=== PATIENT | female | born 1950 | race Caucasian/White ===

== ENCOUNTER 2018-09-23 10:46 | Emergency (ER) | payer MEDICARE ==
[~2018-09-23] VITALS: Ht 172.7 cm; Wt 97.5 kg
[~2018-09-23 10:46] MED LIST: ALTACE10 MG PO; AUGMENTIN 875-1 EACH PO; CELEBREX200 MG PO; CHERATUSSIN AC118 ML PO; DYAZIDE 37.5-21 EACH PO; GABAPENTIN600 MG PO; HEMOCYTE PLUS1 EACH PO; KLOR-CON 88 MEQ PO; LASIX40 MG PO; LEVOTHYROXINE125 MCG PO; LORATADINE10 MG PO; NORCO 10-325 T1 EACH PO; POTASSIUM CHLO20 ME1 PO; PREMARIN0.625 MG PO
--- OUTSIDE RECORDS SUMMARY | 2018-09-23 10:48 | XMS REPORT ---
Author Author [facility] Address Unknown Phone Unavailable Care Team Providers Care Telemarketer Name Role Phone Unavailable Unavailable Payers Payer Name Policy Type Policy Number Effective Date Expiration Date Problems This patient has no known problems. Allergies, Adverse Reactions, Alerts Allergy Name Allergy Type Status Severity Reaction(s) Onset Date Inactive Date Treating Clinician Comments No Known Contrast Allergies DA Active U 2009-03-12 00:00:00 No Known Food Allergies DA Active U 2009-03-12 00:00:00 No Known Other Allergies DA Active U 2009-03-12 00:00:00 PENICILLIN DA Active U 2009-03-12 00:00:00 No Known Drug Intolerances DA Active U 2009-02-27 00:00:00 Penicillins DA Active U 2004-11-18 00:00:00 Medications This patient has no known medications.
== END 2018-09-23 11:34 | disposition home or self-care (01) ==
LOC: FSED 10:46
DX: N30.00 Acute cystitis without hematuria (principal); I10 Essential (primary) hypertension; E03.9 Hypothyroidism, unspecified
CPT/HCPCS: 81003; 99283

== ENCOUNTER 2019-03-14 17:58 | Observation (INO) | payer MEDICARE ==
[~2019-03-14] VITALS: Ht 170.2 cm; Wt 85.7 kg
[2019-03-14] MEDS ORDERED: SODIUM CHLORIDE 0.9% 1000ML 1,000 ML IV SCH (18:30)
[2019-03-14] MEDS ORDERED: KETOROLAC TROMETHAMINE 30 MG/ML VIAL IV ONE ×2 (20:03)
[2019-03-14] MEDS ORDERED: KETOROLAC TROMETHAMINE 30 MG/ML VIAL ONE (20:36)
[2019-03-14] MEDS ORDERED: MORPHINE SULFATE INJ 4 MG/ML INJ 1ML ONE (21:00)
[2019-03-14] MEDS ORDERED: SODIUM CHLORIDE 0.9% 1000ML 1,000 ML ONE (21:00)
[2019-03-14] MEDS ORDERED: MORPHINE SULFATE 5 MG/ML VIAL IV ONE (21:00)
[2019-03-14] MEDS ORDERED: MORPHINE SULFATE INJ 4 MG/ML INJ 1ML IV ONE (21:00)
--- NOTE | 2019-03-14 21:13 | Diagnostic Imaging Report ---
EXAMINATION: Chest PA and lateral views INDICATION: Pain. ^[id number] ^[id number] COMPARISON: None FINDINGS: TUBES and LINES: None. LUNGS: Lungs are not well inflated. There are bibasilar atelectasis. There is no evidence of pneumonia or pulmonary edema. PLEURA: No pleural effusion or pneumothorax. HEART AND MEDIASTINUM: Cardiac size is mildly enlarged. BONES AND SOFT TISSUES: No acute osseous lesion. Spondylosis of the thoracic spine. UPPER ABDOMEN: No free air under the diaphragm. IMPRESSION: No acute thoracic abnormality. Signed by: Dr. Sigrid Bradley M.D. on 03/14/2019 9:10 PM
--- NOTE | 2019-03-14 21:15 | Diagnostic Imaging Report ---
Thoracic Spine 3 - views HISTORY: Pain COMPARISON: None FINDINGS: This examination only became available for interpretation at 2110 hours. Overlying artifact on the lateral view. Posterior elements cannot be evaluated. No displaced fracture. Osseous alignment is within normal limits. Multilevel degenerative disc disease and spondylosis of the cervical and thoracic spine. IMPRESSION: Multilevel degenerative disc disease and spondylosis of the cervical and thoracic spine. Signed by: Dr. Sigrid Bradley M.D. on 03/14/2019 9:11 PM
--- NOTE | 2019-03-14 21:17 | Diagnostic Imaging Report ---
Lumbar Spine Radiographs: 3 views HISTORY: Pain. COMPARISON: None available. DISCUSSION: Examination became available at 2110 hours. Overlying artifact. There are five non-rib bearing lumbar vertebral bodies. Multilevel degenerative disc disease and spondylosis of the entire lumbar spine. No compression fracture deformity. Grade 2 anterolisthesis of L4 in relation to L5. IMPRESSION: 1.Grade 2 anterolisthesis of L4 in relation to L5. 2.Multilevel degenerative disc disease and spondylosis of the entire lumbar spine. Signed by: Dr. Sigrid Bradley M.D. on 03/14/2019 9:13 PM
--- NOTE | 2019-03-14 21:40 | Diagnostic Imaging Report ---
History: Head and back pain Comparison studies:None Technique: Axial images were obtained from the brain and cervical spine. Coronal and sagittal images reconstructed from the axial data. Intravenous contrast: None Dose modulation, iterative reconstruction, and/or weight based adjustment of the mA/kV was utilized to reduce the radiation dose to as low as reasonably achievable. Findings: Head CT: Scalp/skull: No abnormalities. No fractures, blastic or lytic lesions. Brain sulci: Mildly prominent. Ventricles: Normal in size and configuration. No hydrocephalus. Extra-axial spaces: No masses. No fluid collections. Parenchyma: No abnormal densities. No masses, hemorrhage, acute or chronic cortical vascular insults. Sellar/suprasellar region: No abnormalities. Craniocervical junction: Patent foramen magnum. No Chiari one malformation. Mild atherosclerotic calcifications of the carotid siphons Cervical spine CT: Fractures: None. Soft tissues: No gross abnormalities. Atlantoaxial articulation: Degenerative changes without acute abnormality. Alignment: Normal lordosis. No scoliosis. Cervicomedullary junction: No abnormalities. Patent foramen magnum. Vertebrae: No infection or neoplasm. Degenerative changes: Decreased intervertebral space, endplate sclerosis and irregularities from C2 through C7. Uncinate process hypertrophy and facet hypertrophy results in multilevel [id number] foraminal narrowing more significant at C6-7 on the left. Incidental findings: None. Impression: Head CT: 1. No acute intracranial abnormality. Cervical spine CT: 1. No acute abnormalities. 2. Cannot exclude ligament, spinal cord and or vascular abnormalities on the basis of this examination. Signed by: DR Ty Aguilar M.D. on 03/14/2019 9:37 PM
[2019-03-14] MEDS ORDERED: SODIUM CHLORIDE 0.9% 500ML 500 ML IV ONE (22:00)
[2019-03-14] MEDS ORDERED: ONDANSETRON HCL INJ 2MG/ML 2ML 2 MG/ML VIAL IV PRN (22:30)
[2019-03-14] MEDS ORDERED: MORPHINE SULFATE 2 MG/ML SYR 1ML IV PRN (22:30)
[2019-03-14] MEDS ORDERED: SODIUM CHLORIDE 0.9% 500ML 500 ML ONE (22:38)
--- NOTE | 2019-03-14 22:47 | NUR ---
FAMILY FRIEND MACKENZIE ([phone]) REQUESTED TO BE CALLED IF NEEDED FOR PT; PT STATES IT IS OKAY;
--- NOTE | 2019-03-14 23:11 | NUR ---
[facility] CALLED FOR TRANSPORT
[2019-03-15] VITALS (7 sets, daily range): BP systolic 110–128; BP diastolic 52–61
--- NOTE | 2019-03-15 00:30 | NUR ---
PATIENT ARRIVED VIA STRETCHER TO THE UNIT. PATIENT IS A&OX3. CALL LIGHT WITHIN REACH. BELONGINGS WITH PATIENT.
[2019-03-15] MEDS: SODIUM CHLORIDE 0.9% 1000ML 1,000 ML IV SCH ×2 (01:01→10:32)
[2019-03-15] MEDS ORDERED: KLOR-CON 88 MEQ (01:54)
[2019-03-15] MEDS ORDERED: WOMEN'S DAILY1 EAC2 (01:59)
[2019-03-15] MEDS ORDERED: OMEPRAZOLE40 MG (01:59)
[2019-03-15] MEDS ORDERED: VENTOLIN HFA18 GM (01:59)
[2019-03-15] MEDS ORDERED: SINGULAIR10 MG (01:59)
--- NOTE | 2019-03-15 02:00 | NUR ---
CALLED [facility]ARM[facility] ABOUT CHANGING THE MORPHINE SULFATE BECAUSE IT IS GREYED OUT IN [place] AND NOT AVAILABLE. THEY SAID THEY WILL FIX IT.
--- NOTE | 2019-03-15 03:05 | NUR ---
CALLED [facility] S[facility] PHARM[facility]Y BECAUSE MORPHINE SULFATE WAS NOT FIXED AND ASKED THEM TO FIX IT AGAIN. THEY SAID THEY WILL FIX IT SO WAITING FOR THEM TO FIX IT SO I CAN GIVE PAIN MEDICATION TO THE PATIENT
[2019-03-15] MEDS: MORPHINE SULFATE INJ 4 MG/ML INJ 1ML IV PRN ×2 (03:36→10:25)
--- NOTE | 2019-03-15 06:57 | NUR ---
Gave report to oncoming nurse. Patient in bed. Call light within reach.
[2019-03-15 07:21] LABS: BASOPHILS # (AUTO) 0.1 (0.0-0.1); BASOPHILS % 0.9 % (0.0-1.0); EOSINOPHILS # (AUTO) 0.3 (0.0-0.4); EOSINOPHILS % 4.4 % (0.0-6.0); HEMATOCRIT 26.5 % (34.2-44.1); HEMOGLOBIN 8.4 g/dL (12.0-16.0); LYMPHOCYTES # (AUTO) 2.5 (1.0-3.2); LYMPHOCYTES % 31.5 % (18.0-39.1); MEAN CORPUSCULAR HEMOGLOBIN 29.2 pg (28-32); MEAN CORPUSCULAR HGB CONC 31.7 g/dL (31-35); MONOCYTES # (AUTO) 0.7 (0.2-0.8); MONOCYTES % 8.6 % (4.4-11.3); NEUTROPHILS # (AUTO) 4.2 (2.1-6.9); NEUTROPHILS % 54.2 % (38.7-80.0); PLATELET COUNT 314 x10e3/uL (140-360); RED BLOOD COUNT 2.88 x10e6/uL (3.6-5.1); RED CELL DISTRIBUTION WIDTH 13.4 % (11.7-14.4)
[2019-03-15 07:45] LABS: ALBUMIN/GLOBULIN RATIO 0.6 (0.8-2.0); ANION GAP 10.5 mmol/L (8-16); CALCIUM 8.7 mg/dL (8.4-10.2); CREATININE, SERUM 1.69 mg/dL (0.57-1.11); POTASSIUM 3.5 mmol/L (3.5-5.1)
--- NOTE | 2019-03-15 09:10 | NUR ---
patient off the unit for MRI, Stable
[2019-03-15] MEDS ORDERED: LORAZEPAM INJ 2 MG/ML VIAL IV ONE (10:00)
--- NOTE | 2019-03-15 11:48 | NUR ---
patient refused MRI she stating that, she is claustrophobic and she dont want take Ativan IV before MRI, she claiming that she want open MRI in outpatient, paged Dr Dominique
--- NOTE | 2019-03-15 14:35 | NUR ---
paged x2 Dr Dominique that patient refused MRI
--- NOTE | 2019-03-15 17:06 | NUR ---
Patient discharged home, Dr Dominique here for rounds. Prescription faxed to [facility] pharmacy ([phone]), IV canula removed with tip intact, patient aware about f/up appointment
--- NOTE | 2019-03-15 22:59 | Discharge Summary ---
FINAL DIAGNOSES: 1. Acute lower back pain, status post lower back strain. 2. Degenerative disk disease of the lumbar spine. SUMMARY: The patient is a 68-year-old female with chronic kidney disease and chronic anemia at baseline with multiple allergies, came in with acute low back pain. The patient is ambulatory with a cane. Apparently, she was pushing and pulling on the mattress at home, moving and experiencing pain, came to the hospital for further evaluation. X-ray showed degenerative disk disease. She could not tolerate MRI due to claustrophobia. The patient will need open MRI of the lumbosacral spine. The patient is otherwise stable. We will discharge the patient home. Continue with pain medication and follow up as an outpatient for an open MRI outpatient randall. The patient is stable, discharged home today. Resume home medication. MD TIFFANIE Matt/TRESA /[id number]
== END 2019-03-15 16:34 | disposition home or self-care (01) ==
LOC: FSED 17:58 → ERHOLD 22:18 → IMCU 03-15 00:33
PROVIDERS: ADMIT Internal Medicine; ATTEND Internal Medicine
DX: S39.012A Strain of muscle, fascia and tendon of lower back, initial encounter (principal); X50.9XXA Other and unspecified overexertion or strenuous movements or postures, initial encounter; Y93.89 Activity, other specified; Y92.013 Bedroom of single-family (private) house as the place of occurrence of the external cause; N17.9 Acute kidney failure, unspecified; M54.2 Cervicalgia; M51.36 Other intervertebral disc degeneration, lumbar region; N18.9 Chronic kidney disease, unspecified; D64.9 Anemia, unspecified; F40.240 Claustrophobia
CPT/HCPCS: 36415; 70450; 71046; 72070; 72100; 72125; 80048; 80053; 81003; 82553; 84484; 85025 ×2; 93005; 99284; G0378 ×2; J1885; J2270 ×3; J7030 ×2; J7040

== ENCOUNTER 2019-05-30 13:46 | Inpatient (IN) | payer MEDICARE ==
[~2019-05-30] VITALS: Ht 167.6 cm; Wt 92.1 kg
[~2019-05-30 13:46] MED LIST changes: +OMEPRAZOLE40 MG PO; +SINGULAIR10 MG PO; +VENTOLIN HFA18 GM; +WOMEN'S DAILY1 EAC2 PO
--- NOTE | 2019-05-30 14:17 | NUR ---
bp's and pulses all checked and re-checked with md at bedside.
--- NOTE | 2019-05-30 14:17 | NUR ---
in room evaling pt
[2019-05-30] MEDS ORDERED: ONDANSETRON HCL INJ 2MG/ML 2ML 2 MG/ML VIAL IV NR (14:30)
[2019-05-30] MEDS ORDERED: MORPHINE SULFATE 2 MG/ML SYR 1ML IV NR (14:30)
[2019-05-30] MEDS ORDERED: ONDANSETRON HCL INJ 2MG/ML 2ML 2 MG/ML VIAL ONE (14:40)
[2019-05-30 14:49] LABS: BASOPHILS # (AUTO) 0.1 (0.0-0.1); BASOPHILS % 0.5 % (0.0-1.0); EOSINOPHILS # (AUTO) 0.1 (0.0-0.4); EOSINOPHILS % 0.9 % (0.0-6.0); HEMATOCRIT 30.3 % (34.2-44.1); HEMOGLOBIN 9.6 g/dL (12.0-16.0); LYMPHOCYTES # (AUTO) 1.6 (1.0-3.2); LYMPHOCYTES % 12.4 % (18.0-39.1); MEAN CORPUSCULAR HEMOGLOBIN 29.5 pg (28-32); MEAN CORPUSCULAR HGB CONC 31.7 g/dL (31-35); MEAN CORPUSCULAR VOLUME 93.2 fL (81-99); MONOCYTES # (AUTO) 0.8 (0.2-0.8); MONOCYTES % 6.5 % (4.4-11.3); NEUTROPHILS # (AUTO) 10.1 (2.1-6.9); NEUTROPHILS % 79.3 % (38.7-80.0); PLATELET COUNT 439 x10e3/uL (140-360); RED BLOOD COUNT 3.25 x10e6/uL (3.6-5.1); RED CELL DISTRIBUTION WIDTH 14.3 % (11.7-14.4)
--- NOTE | 2019-05-30 14:56 | NUR ---
portable x-ray done. pt going to mri next
--- NOTE | 2019-05-30 14:57 | NUR ---
in/out cath per partition assembler
--- NOTE | 2019-05-30 14:59 | NUR ---
pt declined mri
[2019-05-30 15:03] LABS: BILIRUBIN,URINE NEGATIVE (NEGATIVE); CLARITY,URINE SL CLOUDY (CLEAR); COLOR,URINE YELLOW (YELLOW); KETONES,URINE NEGATIVE (NEGATIVE); LEUKOCYTE ESTERASE ,URINE NEGATIVE (NEGATIVE); NITRITE,URINE NEGATIVE (NEGATIVE); PROTEIN,URINE DIPSTICK TRACE (NEGATIVE); URINE UROBILINOGEN 0.2 mg/dL (0.2 - 1)
[2019-05-30 15:13] LABS: INR 1.05; PROTHROMBIN TIME 14.2 seconds (11.9-14.5)
[2019-05-30 15:14] LABS: PARTIAL THROMBOPLASTIN TIME 38.3 seconds (23.8-35.5)
[2019-05-30 15:17] LABS: BACTERIA,URINE MODERATE /HPF; EPITHELIAL CELLS,URINE MODERATE /LPF; WBC,URINE (MAN) 0-5 /HPF (0-5)
[2019-05-30 15:21] LABS: ALBUMIN 2.5 g/dL (3.5-5.0); ALBUMIN/GLOBULIN RATIO 0.6 (0.8-2.0); ANION GAP 18.8 mmol/L (8-16); CREATININE, SERUM 2.84 mg/dL (0.57-1.11); POTASSIUM 3.8 mmol/L (3.5-5.1)
[2019-05-30 15:27] LABS: CREATINE KINASE MB 2.1 ng/mL (0-5.0)
[2019-05-30] MEDS ORDERED: SODIUM CHLORIDE 0.9% 1000ML 1,000 ML IV ONE ×2 (16:00→17:15)
[2019-05-30] MEDS ORDERED: MORPHINE SULFATE 2 MG/ML SYR 1ML IV PRN (16:00)
--- NOTE | 2019-05-30 16:06 | Diagnostic Imaging Report ---
Examination: Single AP view of the chest. COMPARISON: None. INDICATION: Back pain DISCUSSION: Lines/tubes: None. Lungs: The lungs are well inflated and clear. Scattered calcified granuloma. No pneumonia or pulmonary edema. Pleura: No pleural effusion or pneumothorax. Heart and mediastinum: The heart and the mediastinum are unremarkable. Bones and soft tissues: No acute bony abnormalities. IMPRESSION: 1. No acute cardiopulmonary abnormalities. Signed by: Dr. Alejandro Cobb M.D. on 05/30/2019 4:03 PM
--- NOTE | 2019-05-30 16:06 | Diagnostic Imaging Report ---
Exam: Left hip 2 views History: Pain Comparison: None. Findings: Limited evaluation due to soft tissue attenuation. No displaced fracture. Left hip joint space maintained. Impression: No displaced fracture Signed by: Dr. Alejandro Cobb M.D. on 05/30/2019 4:02 PM
[2019-05-30 16:35] VITALS: BP 110/51
--- NOTE | 2019-05-30 16:50 | Diagnostic Imaging Report ---
History: Chronic back pain Comparison studies: None Technique: Axial images were obtained from T11 inferior endplate through the sacrum. Coronal and sagittal images reconstructed from the axial data. Intravenous contrast: None Dose modulation, iterative reconstruction, and/or weight based adjustment of the mA/kV was utilized to reduce the radiation dose to as low as reasonably achievable. Findings: Number of non-rib bearing vertebral bodies: 5 Alignment: Grade 1 anterolisthesis of L4 over L5 of approximately 6 mm, related to facet hypertrophic changes. Mild levoscoliosis at the thoracolumbar junction with corrective dextroscoliosis at the lower lumbar spine. Soft tissues: No abnormalities. Paraspinal muscles: Fatty infiltration related to moderate atrophy Vertebrae: No fractures, infection or neoplasm. Degenerative changes: L1-L2: Disc degeneration with decreased intervertebral space, endplate sclerotic changes and irregularity. Asymmetric right disc bulge and mild facet hypertrophy results in no significant canal stenosis and moderate to severe right foraminal narrowing L2-L3: Disc degeneration with obliterated intervertebral space, endplate sclerosis and irregularities. Diffuse disc bulge and mild facet hypertrophy results in mild canal stenosis, mild right and moderate left foraminal narrowing L3-L4: Disc degeneration with decreased intervertebral space. Patent asymmetric right disc bulge, mild facet hypertrophy and ligamentum flavum thickening results in mild canal stenosis, mild right and moderate left foraminal narrowing L4-L5: Disc degeneration with decreased intervertebral space, endplate sclerotic changes and irregularities. Uncoverage of the superior disc material. Diffuse disc bulge, severe facet hypertrophy and ligamentum flavum thickening results in severe canal stenosis, moderate right and severe left foraminal narrowing. 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 IMPRESSION: 1. No acute lumbar abnormality. 2. Severe degenerative canal stenosis and moderate bilateral foraminal narrowing at L4-L5. Other degenerative changes as described above. 3. Cannot exclude ligamentous or spinal cord injury. Signed by: DR Ty Aguilar M.D. on 05/30/2019 4:55 PM
--- NOTE | 2019-05-30 18:19 | NUR ---
PATIENT ARRIVED TO ROOM 297 FROM ER AT THIS TIME. SHE IS IN STABLE CONDITION, NO ACUTE DISTRESS NOTED. PATIENT AND FAMILY MEMBER ORIENTED TO ROOM. CALL LIGHT WITHIN REACH. BED IN THE LOWEST POSITION.
--- NOTE | 2019-05-30 18:56 | NUR ---
REPORT GIVEN TO ONCOMING NURSE, WALKING ROUNDS DONE. PATIENT IS RESTING IN BED. NO ACUTE DISTRESS NOTED. CALL LIGHT WITHIN REACH. BED IN THE LOWEST POSITION.
[2019-05-30] MEDS: MORPHINE SULFATE INJ 4 MG/ML INJ 1ML IV PRN ×2 (19:35→23:34)
[2019-05-30] MEDS: ONDANSETRON HCL INJ 2MG/ML 2ML 2 MG/ML VIAL IV PRN ×2 (19:35→23:34)
--- NOTE | 2019-05-30 19:55 | NUR ---
PATIENT IS AOX3, NO SIGNS OF RESPIRATORY DISTRESS NOTED. PATIENT VOICES THAT SHE IS IN A LOT OF PAIN IN LOWER BACK AND IT HURTS MORE WHEN SHE MOVES. A PUREWICK WAS PLACED ON PATIENT FOR URINATION, FLUIDS ARE RUNNING AT ORDERED RATE. BED IS LOW, PATIENT IS LAYING FLAT, BOTH SIDE RAILS ARE UP, CALL LIGHT WITHIN REACH, WILL CONTINUE TO MONITOR.
[2019-05-30 20:00] VITALS: BP 105/52
[2019-05-30 22:30] VITALS: BP 105/52
[2019-05-30 23:07] VITALS: BP 105/52
[2019-05-31] VITALS (9 sets, daily range): BP systolic 100–140; BP diastolic 52–70
--- NOTE | 2019-05-31 03:00 | NUR ---
PATIENT CONTINUES TO EXPRESS MAJOR PAIN WHEN MOVING. PATIENT URINATED ON SHEETS AND SHE WAS CLEANED AND CHANGED PROMPTLY. PATIENT EXPERIENCED EXTREME PAIN WHEN MOVING TO CHANGE SHEETS IN BED. MEDICATED ORDERED.
[2019-05-31] MEDS: ONDANSETRON HCL INJ 2MG/ML 2ML 2 MG/ML VIAL IV PRN ×3 (03:35→14:27)
[2019-05-31] MEDS: MORPHINE SULFATE INJ 4 MG/ML INJ 1ML IV PRN ×3 (03:35→14:27)
[2019-05-31 05:48] LABS: BASOPHILS # (AUTO) 0.1 (0.0-0.1); BASOPHILS % 0.7 % (0.0-1.0); EOSINOPHILS # (AUTO) 0.1 (0.0-0.4); EOSINOPHILS % 0.9 % (0.0-6.0); HEMATOCRIT 29.9 % (34.2-44.1); HEMOGLOBIN 9.3 g/dL (12.0-16.0); LYMPHOCYTES # (AUTO) 1.3 (1.0-3.2); MEAN CORPUSCULAR HEMOGLOBIN 29.3 pg (28-32); MEAN CORPUSCULAR HGB CONC 31.1 g/dL (31-35); MEAN CORPUSCULAR VOLUME 94.3 fL (81-99); MONOCYTES # (AUTO) 0.7 (0.2-0.8); MONOCYTES % 6.9 % (4.4-11.3); NEUTROPHILS # (AUTO) 7.5 (2.1-6.9); NEUTROPHILS % 78.2 % (38.7-80.0); PLATELET COUNT 380 x10e3/uL (140-360); RED BLOOD COUNT 3.17 x10e6/uL (3.6-5.1)
[2019-05-31 06:07] LABS: ALBUMIN 2.3 g/dL (3.5-5.0); ALBUMIN/GLOBULIN RATIO 0.5 (0.8-2.0); CALCIUM 9.9 mg/dL (8.4-10.2); CREATININE, SERUM 2.24 mg/dL (0.57-1.11)
[2019-05-31] MEDS: LEVOTHYROXINE SODIUM 125 MCG TAB PO SCH (06:58)
--- NOTE | 2019-05-31 07:37 | NUR ---
Morning rounding completed. Patient seen resting in bed, no c/o of pain or signs of distress. Bed locked and in low position, call light placed within reach. Will continue to monitor.
[2019-05-31] MEDS: GABAPENTIN 300 MG CAP PO SCH ×3 (08:21→21:00)
[2019-05-31] MEDS: CELECOXIB 200 MG CAP PO SCH (08:21)
[2019-05-31] MEDS: HYDROCODONE/APAP 10MG-325MG TAB PO SCH ×4 (08:21→21:30)
[2019-05-31] MEDS: LORATADINE 10 MG TAB PO SCH (08:21)
[2019-05-31] MEDS: MULTIVITAMINS/MINERALS TAB PO SCH (08:21)
[2019-05-31] MEDS: PANTOPRAZOLE SOD 40 MG TABEC PO SCH (08:22)
[2019-05-31] MEDS: MONTELUKAST SODIUM 10 MG TAB PO SCH (08:22)
[2019-05-31] MEDS ORDERED: RAMIPRIL 5 MG CAP PO SCH (09:00)
[2019-05-31] MEDS ORDERED: ESTROGENS CONJUGATED 0.625 MG TAB PO SCH (09:00)
[2019-05-31] MEDS ORDERED: POTASSIUM CHLORIDE 20 MEQ TAB CR PO SCH (09:00)
[2019-05-31] MEDS ORDERED: ALBUTEROL/IPRATROPIUM 3 ML NEB NEB PRN (09:30)
[2019-05-31] MEDS: DEXAMETHASONE SOD PHOS INJ 4 MG/ML VIAL IV SCH ×2 (09:52→17:00)
[2019-05-31] MEDS ORDERED: LORAZEPAM INJ 2 MG/ML VIAL IV ONE (10:00)
--- NOTE | 2019-05-31 10:00 | NUR ---
APPLIED BED PUMP TO MATTRESS.
--- NOTE | 2019-05-31 10:23 | NUR ---
PATIENT REFUSING MRI DUE TO BEING CLAUSTROPHOBIC, NOTIFIED PATIENT THAT DR. MART ORDERED ATIVAN TO BE GIVEN BEFORE STUDY. PER PATIENT "THEY HAVE TRIED THAT BEFORE, I DON'T WANT TO DO IT" NOTIFIED MD.
[2019-05-31] MEDS: ALBUTEROL SULFATE HFA 8GM INHALATION AEROSOL INH SCH ×3 (11:25→20:05)
[2019-05-31] MEDS: SODIUM CHLORIDE 0.9% 1000ML 1,000 ML IV SCH ×2 (12:08→23:00)
--- NOTE | 2019-05-31 13:25 | History and Physical ---
CHIEF COMPLAINT: Difficulty walking and getting out of bed. HISTORY: The patient is a 68-year-old female with a long history of degenerative lumbar spine disease. The patient is on chronic pain management. The patient came in with increase in lower back pain to the point subsequently that she was having difficulty getting out of bed and ambulate. The patient's pain was severe in light of on scheduled [place]. She also has radiating that pain to the left lower extremity to the hip and into the back area. The patient called EMS and was brought into the hospital. She is severely claustrophobic, therefore no MRI was able to get done. The patient is admitted. CT scan of the L-spine did not show any acute finding, although the patient has significant degenerative disk disease. The patient is otherwise stable. No history or complain of incontinent or constipation. No urinary bladder dysfunction. The patient is able to move her lower extremity, although with limitation and pain to the lower back in the left hip area. X-ray, otherwise no fractures. The patient is stable at this time. PAST MEDICAL HISTORY: Degenerative disk disease of lumbar spine, multiple osteoarthritis knee, hip, hypertension, recurrent urinary tract infection, history of migraine headache, severe chronic sinus allergies problem. Reflux, anemia, obesity, hypothyroidism, lower extremity neuropathy, chronic cough and sinus allergies. PAST SURGICAL HISTORY: Cholecystectomy, appendectomy, hysterectomy, and knee replacement, D and C, tonsillectomy, left wrist avascular necrosis surgery, sinus surgery, bilateral knee arthroscopic surgery, revised total knee replacement. SOCIAL HISTORY: The patient does not smoke or use alcohol. No regular drugs. ALLERGIES: NO KNOWN DRUG ALLERGIES. HOME MEDICATIONS: List is extensively reviewed. REVIEW OF SYSTEMS: Difficulty walking. Pain to the lower back. No loss of bowel or urine control. PHYSICAL EXAMINATION: VITAL SIGNS: Temperature is 98, blood pressure 114/53, pulse rate is 88, respiration 18. GENERAL: The patient is not in acute distress, she is awake. HEENT: Normocephalic, atraumatic. Pupils reactive. Anicteric. NECK: Supple, grossly. PULMONARY: Diminished breath sounds without any wheezing. CARDIOVASCULAR: S1, S2. Regular rate and rhythm. ABDOMEN: Soft, obese, nontender, non-distention. EXTREMITIES: No gross cyanosis or edema. NEUROLOGIC: Difficulty moving of the lower extremity. There is no other focal deficit. LABORATORY DATA: Sodium is 139, potassium 4, chloride 102, bicarb 20, BUN 34, creatinine 2.2, and glucose 96. WBC is 9.6, hemoglobin 9.3, hematocrit 29.9, platelets is 380. PT is 14.2, PTT 38.3. INR is 1.05. AST 14, ALT is 9, alkaline phosphate is 119, total bilirubin is 0.6. Lumbar spine CT without contrast showed no acute lumbar abnormality. Severe degenerative canal stenosis and moderate bilateral foraminal narrowing at L4-L5. Other degenerative changes described in the above. Please review the full report. Hip x-ray is otherwise no fractures. Next, chest x-ray unremarkable. IMPRESSION: 1. Ambulatory dysfunction secondary to lower back pain with severe most likely degenerative disk disease. Unable to obtain MRI since the patient is very adamantly that she is unable to do the close MRI, wanted an open MRI. Discussed with the patient there is no open MRI available, but we will try to give the patient IV Ativan prior to her MRI. The patient is semi-agreeable at this time, but I encouraged the patient to try. 2. Starvation. Decadron 4 mg IV q.8h. Resume home medication. We will consult Dr. Marcos Pizarro for his recommendation. In the meantime, Lovenox for DVT prophylaxis, pain medication, stool management and PT/OT. Please review the orders. MD TIFFANIE Matt/TRESA /[id number]
--- NOTE | 2019-05-31 13:33 | NUR ---
DR. SHER IN TO SEE PATIENT, NOTIFIED MD OF PATIENT REFUSING MRI. PER MD CANCEL MRI ORDER, PATIENT WILL HAVE OPEN MRI OUTPATIENT AND REFER TO HIM FOR OUTPATIENT TREATMENT.
[2019-05-31] MEDS: ENOXAPARIN 30 MG/0.3 ML SYR SC SCH (16:37)
[2019-05-31] MEDS: SENNA-S TABLET PO SCH (16:37)
--- NOTE | 2019-05-31 19:00 | NUR ---
patient recieved awake, alert, sitting up on side of bed. no c/o pain noted. purewick remains intact. ivf continue to infuse without difficulty. pm assessment complete. family noted at the bedside. patient instructed to call for assistance when needed.
--- NOTE | 2019-05-31 19:10 | NUR ---
Bedside report given to night nurse. Patient sitting up on side of bed, no c/o of pain or signs of distress. Reports feeling a lot better. Bed locked and in low position, call light placed within reach.
[2019-06-01] VITALS (7 sets, daily range): BP systolic 104–150; BP diastolic 51–66
--- NOTE | 2019-06-01 | NUR ---
patient appears to be resting quietly. no c/o pain noted at this time.
[2019-06-01] MEDS: DEXAMETHASONE SOD PHOS INJ 4 MG/ML VIAL IV SCH ×2 (01:20→17:33)
[2019-06-01] MEDS: LEVOTHYROXINE SODIUM 125 MCG TAB PO SCH (05:41)
[2019-06-01 06:15] LABS: HEMOGLOBIN 8.9 g/dL (12.0-16.0); LYMPHOCYTES # (AUTO) 0.7 (1.0-3.2); LYMPHOCYTES % 6.4 % (18.0-39.1); MEAN CORPUSCULAR HEMOGLOBIN 29.1 pg (28-32); MEAN CORPUSCULAR HGB CONC 30.7 g/dL (31-35); MEAN CORPUSCULAR VOLUME 94.8 fL (81-99); MONOCYTES # (AUTO) 0.1 (0.2-0.8); MONOCYTES % 1.2 % (4.4-11.3); NEUTROPHILS # (AUTO) 10.1 (2.1-6.9); NEUTROPHILS % 91.9 % (38.7-80.0); PLATELET COUNT 402 x10e3/uL (140-360); RED BLOOD COUNT 3.06 x10e6/uL (3.6-5.1); RED CELL DISTRIBUTION WIDTH 13.9 % (11.7-14.4)
[2019-06-01 06:56] LABS: ANION GAP 13.7 mmol/L (8-16); CREATININE, SERUM 2.04 mg/dL (0.57-1.11); POTASSIUM 4.7 mmol/L (3.5-5.1)
[2019-06-01] MEDS: MULTIVITAMINS/MINERALS TAB PO SCH (10:23)
[2019-06-01] MEDS: ALBUTEROL SULFATE HFA 8GM INHALATION AEROSOL INH SCH ×3 (10:23→21:27)
[2019-06-01] MEDS: CELECOXIB 200 MG CAP PO SCH (10:23)
[2019-06-01] MEDS: LORATADINE 10 MG TAB PO SCH (10:23)
[2019-06-01] MEDS: HYDROCODONE/APAP 10MG-325MG TAB PO SCH ×3 (10:24→21:27)
[2019-06-01] MEDS: GABAPENTIN 300 MG CAP PO SCH ×3 (10:24→21:27)
[2019-06-01] MEDS: PANTOPRAZOLE SOD 40 MG TABEC PO SCH (10:24)
[2019-06-01] MEDS: MONTELUKAST SODIUM 10 MG TAB PO SCH (10:24)
[2019-06-01] MEDS: SENNA-S TABLET PO SCH ×2 (10:24→17:33)
[2019-06-01] MEDS: ONDANSETRON HCL INJ 2MG/ML 2ML 2 MG/ML VIAL IV PRN (12:17)
[2019-06-01] MEDS: MORPHINE SULFATE INJ 4 MG/ML INJ 1ML IV PRN (12:17)
--- NOTE | 2019-06-01 13:17 | NUR ---
EDUCATED ABOUT IMM, SIGNED, FILED IN CHART, WITH COPY LEFT WITH FAMILY AT BEDSIDE
--- NOTE | 2019-06-01 16:31 | NUR ---
SPOKE TO Cedrick VALERIO, HE IS SATED THAT HE IS AWARE THAT DR. PERES IN UNAVAILABLE TO PERFORM THE INJECTION, HE WILL FOLLOW UP.
--- NOTE | 2019-06-01 17:07 | NUR ---
PROVIDED WALKER OBTAINED SIGNATURES, ATTACHED FACESHEET AND DR CHERYL WILL GET MD SIGNATURE AND FILE IN PACU FOR PROCESSING.
[2019-06-01] MEDS: ENOXAPARIN 30 MG/0.3 ML SYR SC SCH (17:33)
--- NOTE | 2019-06-01 19:00 | NUR ---
received report from day nurse. patient is resting comfortably in bed. bed is in lowest position and call armstrong is within reach. will continue to monitor patient.
[2019-06-02] VITALS (7 sets, daily range): BP systolic 112–139; BP diastolic 56–71
[2019-06-02] MEDS: DEXAMETHASONE SOD PHOS INJ 4 MG/ML VIAL IV SCH ×3 (02:06→17:22)
[2019-06-02] MEDS: LEVOTHYROXINE SODIUM 125 MCG TAB PO SCH (05:36)
[2019-06-02 06:26] LABS: CALCIUM 9.6 mg/dL (8.4-10.2); CREATININE, SERUM 1.93 mg/dL (0.57-1.11)
--- NOTE | 2019-06-02 07:10 | NUR ---
The pt. is in bed awake but denies problems at this time. Bed rails are elevated times 3.
[2019-06-02] MEDS: ALBUTEROL SULFATE HFA 8GM INHALATION AEROSOL INH SCH ×3 (07:15→20:01)
[2019-06-02] MEDS: HYDROCODONE/CHLORPHENIRAMINE 5 ML LIQCR PO PRN (09:26)
[2019-06-02] MEDS: MONTELUKAST SODIUM 10 MG TAB PO SCH (09:26)
[2019-06-02] MEDS: PANTOPRAZOLE SOD 40 MG TABEC PO SCH (09:27)
[2019-06-02] MEDS: LORATADINE 10 MG TAB PO SCH (09:27)
[2019-06-02] MEDS: CELECOXIB 200 MG CAP PO SCH (09:27)
[2019-06-02] MEDS: SENNA-S TABLET PO SCH ×2 (09:27→17:22)
[2019-06-02] MEDS: HYDROCODONE/APAP 10MG-325MG TAB PO SCH ×3 (09:27→20:01)
[2019-06-02] MEDS: GABAPENTIN 300 MG CAP PO SCH ×3 (09:27→20:01)
[2019-06-02] MEDS: MULTIVITAMINS/MINERALS TAB PO SCH (09:27)
[2019-06-02] MEDS: MORPHINE SULFATE INJ 4 MG/ML INJ 1ML IV PRN (12:34)
[2019-06-02] MEDS: ENOXAPARIN 30 MG/0.3 ML SYR SC SCH (17:22)
--- NOTE | 2019-06-02 19:19 | NUR ---
received report from day nurse. patient is resting comfortably in the bed. bed is in lowest position and call armstrong is within reach. will continue to monitor patient.
[2019-06-02] MEDS: GUAIFENESIN/CODEINE 10 ML CUP PO PRN (20:03)
--- NOTE | 2019-06-02 23:55 | Progress Note ---
DATE: 06/02/2019 Medicine Progress Note I am covering for Dr. Dominique. SUBJECTIVE: The patient is doing well today with no complaints. The patient reports having still some chronic back pain. We are unable to obtain an MRI due to she is very claustrophobic. She wants an open MRI and likely will occur as an outpatient. Neurosurgery was consulted. We are waiting for group home facility placement. PHYSICAL EXAMINATION: VITAL SIGNS: Temperature 96.7, pulse 72, respirations 20, blood pressure 136/71, pulse ox 97% on room air. GENERAL: No acute distress. Alert and oriented x3. Cooperative on examination. HEENT: Normocephalic and atraumatic. Eyes; pupils equal, round, and reactive to light bilaterally. Extraocular movements are intact bilaterally. Throat, no evidence of erythema or exudates in the posterior pharynx. Has poor dentition. NECK: Supple. Good range of motion. PULMONARY: Clear to auscultation bilaterally. No wheezing, rales, or rhonchi. No crackles appreciated. CARDIOVASCULAR: Positive S1 and S2. No murmurs, rubs, or gallops. ABDOMEN: Soft, nondistended, and nontender to palpation. Bowel sounds present. MUSCULOSKELETAL: Strength is 5/5 throughout. No evidence of any muscle deficits on examination. No weakness appreciated. NEUROLOGIC: Cranial nerves II through XII grossly intact. No evidence of any neurological deficits on exam. SKIN: Intact. Warm to touch. Good cap refill. PSYCHIATRIC: Normal affect and mood. EXTREMITIES: No edema. Good range of motion throughout. LABORATORY DATA: Lab findings show white count 11, hemoglobin 8.9, hematocrit 29, and platelets of 402. Chemistries reviewed and stable. MICROBIOLOGY: Urine cultures were negative. IMAGING STUDIES: CT of the lumbar spine shows severe degenerative canal stenosis with moderate bilateral foraminal narrowing of L4-L5. No acute lumbar abnormality. IMPRESSION: 1. Chronic lower back pain, lumbar region. 2. Central canal stenosis with degenerative disk disease. PLAN: At this time, Pain Management has been consulted as well as Neurosurgery. Continue with pain control. She refuses MRI as she gets very claustrophobic. Despite even given her Ativan, she still does not want the MRI performed here. She will likely be discharged and get an open MRI at a later date. Continue with same plan of care. Get PT and OT evaluation. MD MARY Starks/TRESA /[id number]
[2019-06-03] VITALS (8 sets, daily range): BP systolic 107–136; BP diastolic 55–71
[2019-06-03] MEDS: DEXAMETHASONE SOD PHOS INJ 4 MG/ML VIAL IV SCH ×3 (01:53→17:08)
[2019-06-03] MEDS: LEVOTHYROXINE SODIUM 125 MCG TAB PO SCH (05:19)
--- NOTE | 2019-06-03 06:55 | NUR ---
report given to day nurse. patient is resting comfortably in bed. bed is in lowest position and call armstrong is within reach.
[2019-06-03 06:58] LABS: BASOPHILS % 0.1 % (0.0-1.0); HEMATOCRIT 26.6 % (34.2-44.1); HEMOGLOBIN 8.2 g/dL (12.0-16.0); LYMPHOCYTES # (AUTO) 1.7 (1.0-3.2); LYMPHOCYTES % 21.5 % (18.0-39.1); MEAN CORPUSCULAR HEMOGLOBIN 29.1 pg (28-32); MEAN CORPUSCULAR HGB CONC 30.8 g/dL (31-35); MEAN CORPUSCULAR VOLUME 94.3 fL (81-99); MONOCYTES # (AUTO) 0.4 (0.2-0.8); MONOCYTES % 4.5 % (4.4-11.3); NEUTROPHILS # (AUTO) 5.9 (2.1-6.9); NEUTROPHILS % 73.3 % (38.7-80.0); PLATELET COUNT 433 x10e3/uL (140-360); RED BLOOD COUNT 2.82 x10e6/uL (3.6-5.1)
--- NOTE | 2019-06-03 07:07 | NUR ---
PT ALERT RESP EVEN AND UNLABORED AND NO DISTRESS NOTED AT THIS TIME, PT ABLE TO MAKE NEEDS KNOWN, CALL LIGHT IN REACH.
[2019-06-03] MEDS: ALBUTEROL SULFATE HFA 8GM INHALATION AEROSOL INH SCH ×3 (07:15→20:10)
[2019-06-03 07:32] LABS: ANION GAP 11.7 mmol/L (8-16); CALCIUM 9.8 mg/dL (8.4-10.2); CREATININE, SERUM 1.61 mg/dL (0.57-1.11); POTASSIUM 4.7 mmol/L (3.5-5.1)
[2019-06-03] MEDS: CELECOXIB 200 MG CAP PO SCH (09:01)
[2019-06-03] MEDS: GABAPENTIN 300 MG CAP PO SCH ×3 (09:01→20:16)
[2019-06-03] MEDS: MULTIVITAMINS/MINERALS TAB PO SCH (09:01)
[2019-06-03] MEDS: LORATADINE 10 MG TAB PO SCH (09:02)
[2019-06-03] MEDS: SENNA-S TABLET PO SCH ×2 (09:02→17:08)
[2019-06-03] MEDS: PANTOPRAZOLE SOD 40 MG TABEC PO SCH (09:02)
[2019-06-03] MEDS: MONTELUKAST SODIUM 10 MG TAB PO SCH (09:02)
[2019-06-03] MEDS: HYDROCODONE/APAP 10MG-325MG TAB PO SCH ×3 (09:02→20:17)
[2019-06-03] MEDS: GUAIFENESIN/CODEINE 10 ML CUP PO PRN (09:05)
[2019-06-03] MEDS: ONDANSETRON HCL INJ 2MG/ML 2ML 2 MG/ML VIAL IV PRN (14:21)
[2019-06-03] MEDS: MORPHINE SULFATE INJ 4 MG/ML INJ 1ML IV PRN ×2 (14:21→22:07)
[2019-06-03] MEDS: ENOXAPARIN 30 MG/0.3 ML SYR SC SCH (17:08)
--- NOTE | 2019-06-03 19:36 | NUR ---
PT STABLE, REPORT GIVEN TO ONCOMING NURSE.
[2019-06-04] VITALS: BP 105/52
[2019-06-04] MEDS: DEXAMETHASONE SOD PHOS INJ 4 MG/ML VIAL IV SCH ×2 (01:32→09:13)
--- NOTE | 2019-06-04 02:40 | Progress Note ---
DATE: 06/03/2019 Medicine Progress Note SUBJECTIVE: The patient is doing well today with no complaints. She states that her pain is still present in her lower back. Pain Management still has not seen the patient, not sure about the entire plan of that. PHYSICAL EXAMINATION: VITAL SIGNS: Temperature 97.5, pulse 78, respiratory rate 18, blood pressure 116/55, and pulse ox 95% on room air. GENERAL: Not in acute distress. Alert and oriented x3. Cooperative on examination HEENT: Head is normocephalic and atraumatic. Eyes; pupils are equal, round, and reactive to light bilaterally. Extraocular movements are intact bilaterally. Throat, no evidence of erythema or exudates in the posterior pharynx. Has poor dentition. NECK: Supple. Good range of motion throughout. PULMONARY: Clear to auscultation bilaterally. No wheezing, rales, or rhonchi. No crackles appreciated. CARDIOVASCULAR: Positive S1 and S2. No murmurs, rubs, or gallops. ABDOMEN: Soft, nondistended, and nontender to palpation. Bowel sounds present. MUSCULOSKELETAL: Strength is 5/5 throughout. No evidence of any muscle deficits on examination. No weakness appreciated. NEUROLOGIC: Cranial nerves II through XII grossly intact. No evidence of any neurological deficits on exam. SKIN: Intact. Warm to touch. Good cap refill. PSYCHIATRIC: Normal affect and mood. EXTREMITIES: No edema. Good range of motion throughout. LABORATORY DATA: Lab findings; white count 7.9, hemoglobin 8.2, hematocrit 26, platelets of 433. Chemistries; sodium is 139, potassium 4.7, chloride 105, bicarb 27, anion gap is 11.7. BUN is 42, creatinine is 1.6, and calcium is 9.8. IMPRESSION: 1. Chronic lower back pain within the lumbar region. 2. Central canal stenosis with degenerative disk disease. PLAN: At this time, Pain Management has been consulted, who has not been present to see the patient. Neurosurgery also saw the patient, recommended just outpatient followup them in the office. Continue with same pain control. The patient refuses MRI here due to claustrophobia despite given Ativan and other medications. At this time, they have agreed to be discharged soon as an outpatient to get an open MRI at a later today. Continue with PT and OT and pain control. MD MARY Starks/TRESA /[id number]
[2019-06-04 04:00] VITALS: BP 123/56
[2019-06-04] MEDS: LEVOTHYROXINE SODIUM 125 MCG TAB PO SCH (05:37)
--- NOTE | 2019-06-04 07:40 | NUR ---
PATIENT IS AWAKE AND IN STABLE CONDITION WITH NO S/S OF RESPIRATORY DISTRESS. NO PAIN VOICED. PATIENT AMBULATED TO SIT IN THE CHAIR- WALKER PRESENT NEAR PATIENT. CALL LIGHT IS WITHIN REACH, PATIENT INSTRUCTED TO CALL FOR ASSISTANCE NEEDED.
[2019-06-04] MEDS: ALBUTEROL SULFATE HFA 8GM INHALATION AEROSOL INH SCH ×2 (07:45→14:10)
[2019-06-04 08:00] VITALS: BP 144/69
[2019-06-04] MEDS: GABAPENTIN 300 MG CAP PO SCH ×2 (08:26→14:10)
[2019-06-04] MEDS: CELECOXIB 200 MG CAP PO SCH (08:26)
[2019-06-04] MEDS: HYDROCODONE/APAP 10MG-325MG TAB PO SCH ×2 (08:26→14:11)
[2019-06-04] MEDS: PANTOPRAZOLE SOD 40 MG TABEC PO SCH (08:26)
[2019-06-04] MEDS: MONTELUKAST SODIUM 10 MG TAB PO SCH (08:26)
[2019-06-04] MEDS: MULTIVITAMINS/MINERALS TAB PO SCH (08:26)
[2019-06-04] MEDS: LORATADINE 10 MG TAB PO SCH (08:26)
[2019-06-04] MEDS: SENNA-S TABLET PO SCH (09:00)
--- NOTE | 2019-06-04 09:21 | NUR ---
PATIENT AMBULATING IN THE HALLWAY WITH WALKER IN HAND- PATIENT IN STABLE CONDITION WITH NO S/S OF RESPIRATORY DISTRESS.
[2019-06-04 09:33] VITALS: BP 144/69
[2019-06-04 12:00] VITALS: BP 151/65
[2019-06-04] MEDS: HYDROCODONE/CHLORPHENIRAMINE 5 ML LIQCR PO PRN (13:06)
[2019-06-04 16:00] VITALS: BP 143/63
[2019-06-04] MEDS ORDERED: TYLENOL WITH C1 EACH PO (16:09)
--- NOTE | 2019-06-04 17:25 | NUR ---
PATIENT DISCHARGE HOME- PATIENT OFF THE UNIT AT 1705 PER AMBULATION WITH WALKER (RECEIVED FROM THE HOSPITAL) AND ACCOMPANIED BY PCT TO THE FRONT LOBBY. PATIENT IN STABLE CONDITION WITH NO S/S OF RESPIRATORY DISTRESS. NO PAIN VOICED. IV REMOVED AT 1652 WITH TIP INTACT. DISCHARGE TEACHING, INSTRUCTIONS, AND MEDICATION GIVEN TO THE PATIENT. ALL PERSONAL ITEMS TAKEN WITH THE PATIENT.
--- NOTE | 2019-06-04 20:28 | Discharge Summary ---
FINAL DISCHARGE DIAGNOSES: 1. Chronic lower back pain in the lumbar region. 2. Central canal stenosis with degenerative disk disease. CONSULTANTS: 1. Neurosurgery. 2. Pain Management. PHYSICAL EXAMINATION: VITAL SIGNS: Temperature is 96.6, pulse 62, respiratory rate is 12, blood pressure is 151/65, and pulse ox is 98% on room air. LABORATORY FINDINGS: Show white count of 7.9, hemoglobin 8.2, hematocrit is 28.6, platelets of 433. PT 14, INR 1, PTT is 38. Chemistry; sodium 139, potassium 3.7, chloride 105, bicarbonate 27, anion gap of 11, BUN is 42, creatinine is 1.6 downtrending, calcium is 9.8. LFTs within normal range. CK was 240, but downtrending. Troponins were negative. Albumin is 2.5, total protein 6.9. Urinalysis shows evidence of trace protein, moderate amount of urine bacteria. MICROBIOLOGY: Urine cultures were found to be no growth. IMAGING STUDIES: Hip x-ray, no displaced fracture, otherwise negative hip x-ray. Chest x-ray, no acute cardiopulmonary abnormalities. CT lumbar spine shows no acute lumbar abnormality. Severe degenerative canal stenosis and moderate bilateral foraminal narrowing at L4-L5. Other degenerative changes as described. HOSPITAL COURSE: This is a 68-year-old female, who came into the emergency room department due to chronic back pain, needing pain control. She does follow up with Dr. Dominique as an outpatient in his office. Apparently, ran out of her [place] at home before her due date, came into the emergency room due to severe pain. The patient reports she had difficulty ambulating and hence the reason why she came to the emergency room department. While here, Neurosurgery was consulted. Recommended MRI of the lumbar spine. The patient is claustrophobic despite giving the patient IV Ativan prior to the MRI. Due to that, the patient agreed that she will be discharged and do an open MRI as an outpatient. I suggested that it was important to do the closed MRI here, but she states that she is doing well. She is ambulating with a walker and she has been dealing with this for several years now. At this time, it seems like she has been cleared by Neurosurgery and she has agreed to follow up according to Dr. Dominique's note in his office to get an open MRI of her lumbar spine to have that further evaluated and then to see Neurosurgery as an outpatient. Pain management was consulted here at this hospital stay, but no one showed up and saw the patient. The patient was eager to discharge home. She will be discharged home with Tylenol No. 3. She does have an appointment tomorrow to see Dr. Dominique in his office 06/05/2019, to get prescriptions for [place]. On discharge, the patient was doing well with no complaints. There was no reports of any bowel or urinary incontinence. She is back to normal baseline. Has no other issues at this time. On the day of discharge, vital signs were stable, labs reviewed and stable. The patient is seen and evaluated, examined thoroughly on the day of discharge. No other complaints. The patient verbalized understanding and agrees to plan of care to follow up with her primary care physician tomorrow, 06/05/2019, Dr. Dominique and as an appointment for pain medication and follow up with Dr. Pizarro, Neurosurgery in 1-2 weeks' time. The patient verbalized a followup and get her open MRI as an outpatient. MEDICATIONS: See med reconciliation form. DISPOSITION: Home. CONDITION: Stable. DIET: Heart healthy. In the event of any worsening symptoms, the patient was advised to come back to the ED for further evaluation. Discharge summary took greater than 35 minutes. MD MARY Starks/TRESA /[id number]
== END 2019-06-04 17:26 | disposition home or self-care (01) | DRG 552 ==
LOC: ER 13:46 → ERHOLD 16:02 → MED/SURG3 18:37
PROVIDERS: ADMIT Internal Medicine; ATTEND Internal Medicine
DX: M51.16 Intervertebral disc disorders with radiculopathy, lumbar region (principal); N17.9 Acute kidney failure, unspecified; G89.29 Other chronic pain; I10 Essential (primary) hypertension; Z87.440 Personal history of urinary (tract) infections; E03.9 Hypothyroidism, unspecified; D64.9 Anemia, unspecified; K21.9 Gastro-esophageal reflux disease without esophagitis; G62.9 Polyneuropathy, unspecified; M25.552 Pain in left hip; M17.0 Bilateral primary osteoarthritis of knee; F40.240 Claustrophobia; M48.061 Spinal stenosis, lumbar region without neurogenic claudication; R05 Cough
CPT/HCPCS: 36415; 71045; 72131; 80048; 80053; 81001; 82550; 82553; 84484; 85025; 85610; 85730; 87086; 93005; 94664; 96361; 99284; J1100; J1650; J2270; J2405; J7030